=== PATIENT | female | born 1935 | race Caucasian/White ===

== ENCOUNTER 2019-08-15 18:55 | Emergency (ER) | payer MEDICARE ==
[2019-08-15 19:41] LABS: CREATININE 1.2 mg/dL (0.5-1.5); POTASSIUM 4.5 mmol/L (3.5-5.1)
[2019-08-15 19:45] LABS: ALBUMIN 3.6 g/dL (3.5-5.0); BILIRUBIN,TOTAL 0.4 mg/dL (0.2-1.0); TOTAL PROTEIN, SERUM 7.3 g/dL (6.0-8.3)
[2019-08-15] MEDS ORDERED: SODIUM CHLORIDE 0.9% 250 ML IV ONE (20:47)
[2019-08-15 21:02] LABS: BASOPHILS % (AUTO) 1.7 % (0.0-5.0); EOSINOPHILS % (AUTO) 1.3 % (0.0-8.0); HEMATOCRIT 24.8 % (36-48); LYMPHOCYTES % (AUTO) 32.6 % (21.0-51.0); MEAN CORPUSCULAR HEMOGLOBIN 33.6 pg (27.0-33.0); MEAN CORPUSCULAR HGB CONC 34.2 g/dL (32.0-36.0); MEAN CORPUSCULAR VOLUME 98.2 fL (79-99); MONOCYTES % (AUTO) 9.2 % (3.0-13.0); NEUTROPHILS % (AUTO) 55.2 % (40.0-77.0); NUCLEATED RED BLOOD CELLS 0.1 % (0.0-0.19); PLATELET COUNT (AUTO) 286 K/uL (130-400); RED BLOOD CELL COUNT(AUTO) 2.53 MIL/uL (4.00-5.50); RED CELL DISTRIBUTION WIDTH 13.9 % (11.0-15.5); WHITE BLOOD COUNT (AUTO) 6.3 K/uL (4.8-10.8)
[2019-08-15 21:24] LABS: APPEARANCE,URINE Cloudy (CLEAR); BILIRUBIN,URINE Negative (NEGATIVE); COLOR,URINE Yellow (YELLOW); GLUCOSE, URINE (UA) Negative (NEGATIVE); KETONES,URINE Negative (NEGATIVE); LEUKOCYTE ESTERASE ,URINE Large (NEGATIVE); NITRATE,URINE Negative (NEGATIVE); OCCULT BLOOD,URINE Negative (NEGATIVE); PH,URINE 5.5 (5.0-8.0); PROTEIN,URINE Trace mg/dL (NEGATIVE); UROBILINOGEN,URINE 0.2 mg/dL (0.2-1.0)
[2019-08-15] MEDS ORDERED: CEFTRIAXONE SODIUM 1 GM ONE (21:41)
[2019-08-15 21:47] LABS: INR 0.98 (0.85-1.15); PARTIAL THROMBOPLASTIN TIME 23.6 SEC (26.3-35.5); PROTHROMBIN TIME 10.3 SEC (9.6-11.6)
[2019-08-15 21:59] LABS: BACTERIA,URINE Rare /HPF (None Seen); SQUAMOUS EPITHELIAL CELL,UR Rare /HPF (0-2); TRANSITIONAL EPI CELLS,URINE Rare /HPF (None Seen)
[2019-08-15 22:22] LABS: TROPONIN I 0.04 ng/mL (0.00-0.06)
== END 2019-08-15 23:19 | disposition home or self-care (01) ==
LOC: EDH 18:55
DX: N39.0 Urinary tract infection, site not specified (principal); I10 Essential (primary) hypertension; D64.9 Anemia, unspecified; R06.00 Dyspnea, unspecified; M19.90 Unspecified osteoarthritis, unspecified site; E78.00 Pure hypercholesterolemia, unspecified; Z90.710 Acquired absence of both cervix and uterus; Z88.1 Allergy status to other antibiotic agents
CPT/HCPCS: 36415; 71045; 80053; 81001; 82550; 83605; 83690; 83874; 84145; 84484 ×2; 85025; 85610; 85730; 87040 ×2; 87077; 87186; 93005; 96374; 99285; J0696; J7030

== ENCOUNTER 2019-08-17 18:20 | Inpatient (IN) | payer MEDICARE ==
[~2019-08-17] VITALS: Ht 162.6 cm; Wt 45.0 kg
[2019-08-17 19:10] LABS: BASOPHILS % (AUTO) 1.2 % (0.0-5.0); EOSINOPHILS % (AUTO) 0.2 % (0.0-8.0); HEMATOCRIT 23.3 % (36-48); LYMPHOCYTES % (AUTO) 27.4 % (21.0-51.0); MEAN CORPUSCULAR HEMOGLOBIN 33.5 pg (27.0-33.0); MEAN CORPUSCULAR VOLUME 98.3 fL (79-99); MONOCYTES % (AUTO) 8.9 % (3.0-13.0); NEUTROPHILS % (AUTO) 62.3 % (40.0-77.0); PLATELET COUNT (AUTO) 313 K/uL (130-400); RED BLOOD CELL COUNT(AUTO) 2.37 MIL/uL (4.00-5.50); RED CELL DISTRIBUTION WIDTH 13.3 % (11.0-15.5); WHITE BLOOD COUNT (AUTO) 5.4 K/uL (4.8-10.8)
[2019-08-17 19:27] LABS: CREATININE 1.3 mg/dL (0.5-1.5); POTASSIUM 4.1 mmol/L (3.5-5.1)
[2019-08-17 19:31] LABS: PARTIAL THROMBOPLASTIN TIME 32.6 SEC (26.3-35.5); PROTHROMBIN TIME 10.5 SEC (9.6-11.6)
[2019-08-17 19:32] LABS: ALBUMIN 3.1 g/dL (3.5-5.0); BILIRUBIN,TOTAL 0.3 mg/dL (0.2-1.0); TOTAL PROTEIN, SERUM 6.4 g/dL (6.0-8.3)
[2019-08-17] MEDS ORDERED: FUROSEMIDE 10 MG/ML 4ML VIAL ONE (21:41)
[2019-08-17] MEDS: FUROSEMIDE 10 MG/ML 2ML VIAL IV SCH (22:15)
[2019-08-17] MEDS ORDERED: CEFTRIAXONE SODIUM 1 GM ONE (22:41)
[2019-08-18] VITALS (7 sets, daily range): BP systolic 151–162; BP diastolic 55–87
[2019-08-18] MEDS ORDERED: ZOLPIDEM TARTRATE 5 MG TAB PO ONE (01:30)
[2019-08-18] MEDS ORDERED: ZOLPIDEM TARTRATE 5 MG TAB ONE ×2 (01:40→22:52)
[2019-08-18] MEDS ORDERED: THIA100T91 PO (01:50)
[2019-08-18] MEDS ORDERED: LORA10TA7 PO (01:50)
[2019-08-18] MEDS ORDERED: ALLO100T PO (01:50)
[2019-08-18] MEDS ORDERED: PANT40TA PO (01:50)
[2019-08-18] MEDS ORDERED: MVIT PO (01:50)
[2019-08-18] MEDS ORDERED: LOSA100T58 PO (01:50)
[2019-08-18] MEDS ORDERED: LABE200T5 PO (01:50)
[2019-08-18] MEDS ORDERED: ZOLP5TAB2 PO (01:50)
[2019-08-18] MEDS ORDERED: HYDR200T82 PO (01:50)
[2019-08-18 05:12] LABS: BASOPHILS % (AUTO) 1.3 % (0.0-5.0); HEMATOCRIT 23.9 % (36-48); LYMPHOCYTES % (AUTO) 33.8 % (21.0-51.0); MEAN CORPUSCULAR HEMOGLOBIN 33.9 pg (27.0-33.0); MEAN CORPUSCULAR HGB CONC 34.6 g/dL (32.0-36.0); MONOCYTES % (AUTO) 11.3 % (3.0-13.0); NEUTROPHILS % (AUTO) 53.6 % (40.0-77.0); NUCLEATED RED BLOOD CELLS 0.1 % (0.0-0.19); PLATELET COUNT (AUTO) 310 K/uL (130-400); RED BLOOD CELL COUNT(AUTO) 2.44 MIL/uL (4.00-5.50); RED CELL DISTRIBUTION WIDTH 13.5 % (11.0-15.5); WHITE BLOOD COUNT (AUTO) 5.2 K/uL (4.8-10.8)
[2019-08-18 05:35] LABS: ALBUMIN 3.1 g/dL (3.5-5.0); BILIRUBIN,TOTAL 0.4 mg/dL (0.2-1.0); CREATININE 1.5 mg/dL (0.5-1.5); POTASSIUM 3.6 mmol/L (3.5-5.1); TOTAL PROTEIN, SERUM 6.5 g/dL (6.0-8.3)
[2019-08-18] MEDS: FUROSEMIDE 10 MG/ML 2ML VIAL IV SCH ×2 (08:46→21:01)
[2019-08-18] MEDS: FAMOTIDINE/PF 20 MG/2 ML VIAL IV SCH (08:46)
[2019-08-18] MEDS ORDERED: ONDANSETRON HCL 4 MG/2 ML VIAL IVP PRN (10:00)
[2019-08-18] MEDS ORDERED: HYDRALAZINE HCL 20 MG/ML VIAL IV PRN (10:00)
[2019-08-18] MEDS: CEFTRIAXONE SODIUM 1 GM IVP SCH (12:15)
[2019-08-18] MEDS: HEPARIN SODIUM 5000UNIT/ML 1ML VIAL SQ SCH ×2 (12:24→21:03)
[2019-08-18 13:07] LABS: APPEARANCE,URINE CLEAR (CLEAR); BILIRUBIN,URINE NEGATIVE (NEGATIVE); COLOR,URINE YELLOW (YELLOW); GLUCOSE, URINE (UA) NEGATIVE (NEGATIVE); KETONES,URINE NEGATIVE (NEGATIVE); LEUKOCYTE ESTERASE ,URINE NEGATIVE (NEGATIVE); NITRATE,URINE NEGATIVE (NEGATIVE); OCCULT BLOOD,URINE NEGATIVE (NEGATIVE); PH,URINE 5.5 (5.0-8.0); PROTEIN,URINE NEGATIVE (NEGATIVE); UROBILINOGEN,URINE 0.2 mg/dL (0.2-1.0)
[2019-08-18 13:13] LABS: AMORPHOUS SEDIMENT,UR Few /LPF (None Seen); BACTERIA,URINE Few /HPF (None Seen); SQUAMOUS EPITHELIAL CELL,UR Few /HPF (0-2)
--- NOTE | 2019-08-18 15:14 | NUR ---
DCP CM met with pt discussed dc plans. Pt is semi-independent prior to admission, lives at home w/daughter. Pt has a walker, cane, shower chair. Denies any other equipments/services. Feels safe to go back home, daughter able to assist with transportation and needs as necessary. DC plan to home once stable. CM to cont to follow up. Addendum: 08/18/19 at 1515 by KYLEE ADAMES LVN CM Amended: Links added.
--- NOTE | 2019-08-18 15:43 | NUR ---
RD NOTIFICATION DX: CHF EXACERBATION. HX: DEMENTIA, ANEMIA, ARTHRITIS, HTN. SKIN: STG 2 ULCER ON LEFT BUTTOCKS REGION, NO EDEMA NOTED. DIET: NPO. LBM: 08/17. PO INTAKE 75% AND HAS GREAT APPETITE PER PT. PT STATED SHE HAS DIFFICULTY CHEWING FOOD AT TIMES AND HAS GERD. BMI IS 17; CLASSIFIED UNDERWEIGHT. PT CLAIMS SHE DOES NOT LIKE ENSURE, SHE WOULD RATHER EAT FOOD. RD RECOMMENDS ADVANCE DIET TOLERATED TO GI SOFT/BLAND, MECHANICAL SOFT/CHOPPED, 2GM Na. RD WILL CONTINUE TO MONITOR AND FOLLOW UP NEEDED. YISEL MARTINEZ MS, RDN Addendum: 08/18/19 at [address] RD Amended: Links added.
[2019-08-18] MEDS: HYDROXYCHLOROQUINE SULFATE 200 MG TAB PO SCH (21:00)
[2019-08-18] MEDS: PANTOPRAZOLE SODIUM 40 MG TABLET.DR PO SCH (21:01)
[2019-08-18] MEDS: LABETALOL HCL 200 MG TABLET PO SCH (21:01)
--- NOTE | 2019-08-18 22:52 | NUR ---
Ambien 5mg po at HS resumed and administered as ordered.
[2019-08-19 04:30] VITALS: BP 138/68
[2019-08-19 05:42] LABS: HEMATOCRIT 24.5 % (36-48); MEAN CORPUSCULAR HEMOGLOBIN 34.2 pg (27.0-33.0); MEAN CORPUSCULAR HGB CONC 34.7 g/dL (32.0-36.0); MEAN CORPUSCULAR VOLUME 98.6 fL (79-99); PLATELET COUNT (AUTO) 315 K/uL (130-400); RED BLOOD CELL COUNT(AUTO) 2.49 MIL/uL (4.00-5.50); RED CELL DISTRIBUTION WIDTH 13.6 % (11.0-15.5); WHITE BLOOD COUNT (AUTO) 6.4 K/uL (4.8-10.8)
[2019-08-19 05:50] LABS: CREATININE 1.8 mg/dL (0.5-1.5)
[2019-08-19 08:49] VITALS: BP 151/75
[2019-08-19] MEDS ORDERED: LORATADINE 10 MG TABLET PO SCH (09:00)
[2019-08-19] MEDS: FAMOTIDINE/PF 20 MG/2 ML VIAL IV SCH (09:49)
[2019-08-19] MEDS: CEFTRIAXONE SODIUM 1 GM IVP SCH (09:49)
[2019-08-19] MEDS: LOSARTAN 100 MG TABLET PO SCH (09:53)
[2019-08-19] MEDS: PANTOPRAZOLE SODIUM 40 MG TABLET.DR PO SCH ×2 (09:53→20:33)
[2019-08-19] MEDS: MULTIVITAMIN TABLET PO SCH (09:53)
[2019-08-19] MEDS: LABETALOL HCL 200 MG TABLET PO SCH ×2 (09:54→20:33)
[2019-08-19] MEDS: ALLOPURINOL 100 MG TABLET PO SCH (09:54)
[2019-08-19] MEDS: HYDROXYCHLOROQUINE SULFATE 200 MG TAB PO SCH ×2 (09:54→20:33)
[2019-08-19] MEDS: THIAMINE HCL 100 MG TABLET PO SCH (09:54)
[2019-08-19] MEDS: HEPARIN SODIUM 5000UNIT/ML 1ML VIAL SQ SCH ×2 (10:07→20:30)
[2019-08-19] MEDS: AZITHROMYCIN 500MG+NS 250ML 250 ML IV SCH (11:21)
[2019-08-19 11:52] VITALS: BP 145/72
--- NOTE | 2019-08-19 13:02 | NUR ---
CM Note: [facility] pending acceptance CM met with pt discussed MD recommendations for short term rehab, pt agreeable for [facility], RICHARD signed, pt verbalized to inform daughter Raciel. Called [facility] and Essence given courtesy call as per pt request regarding POC, both daughter in agreement, obtained telephone consent RICHARD for [facility]. Faxed order, clinicals, PT, and [facility], confirmation received. Spoke to [facility], will come eval pt, aware pt pending to completed 3rd midnight tonight, ok to transfer tomorrow once accepted. EMS arranged and faxed for tomorrow, primary nurse to call [facility] once pt ready to DC. Primary nurse Donald aware. CM to cont to follow up.
--- NOTE | 2019-08-19 14:58 | NUR ---
CM Note: [facility] acceptance CM spoke to [facility], came to eval pt. Pt has acceptance. Aware pt needed to completed 3rd midnight tonight. Ok to transfer tomorrow via EMS. EMS arranged and faxed for tomorrow, primary nurse aware to call [facility] once pt ready to DC. Primary nurse aware. CM to cont to follow up.
--- NOTE | 2019-08-19 15:15 | NUR ---
Patient in process of discussions with [facility] regarding transfer. Spoke with primary nurse, redness and dryness to skin of buttocks. Skin barrier and allevyn life pads being used to protect skin from breakdown. No open areas present as per primary nurse. No further recommendations provided at this time. Continue to apply skin barrier cream, offload and use allevyn pads for offloading areas. Reconsult should breakdown occur.
[2019-08-19 16:22] VITALS: BP 144/77
--- NOTE | 2019-08-19 19:36 | NUR ---
CONTACT PHYSICIAN CONTACTED APRIL CARTER REGARDING PATIENT NOT ON DR. AMBROCIO'S CENSUS AND HAS NOT BEEN SEEN. ADVISED PATIENT REQUESTING NG TUBE BE REMOVED. APRIL ADVISED HE IS UNABLE TO PLACE ANY ORDER UNTIL HE SEES THE PATIENT NEXT DATE. SPOKE WITH DR. AMBROCIO REGARDING PATIENT. ADVISED PATIENT HAS HAS NO OUTPUT FROM NG TUBE. DR. AMBROCIO ADVISED TO DC THE NG TUBE AND PLACE THE PATIENT ON CLEAR LIQUID DIET.
[2019-08-19 20:00] VITALS: BP 142/60
[2019-08-19] MEDS: ZOLPIDEM TARTRATE 5 MG TAB PO SCH (20:33)
[2019-08-19] MEDS: ACETAMINOPHEN EXTRA STRENGTH 500 MG TABLET PO PRN (20:33)
[2019-08-19 23:59] VITALS: BP 106/50
[2019-08-20 04:00] VITALS: BP 163/88
[2019-08-20 05:25] LABS: HEMATOCRIT 23.6 % (36-48); MEAN CORPUSCULAR HEMOGLOBIN 33.9 pg (27.0-33.0); MEAN CORPUSCULAR HGB CONC 34.1 g/dL (32.0-36.0); MEAN CORPUSCULAR VOLUME 99.7 fL (79-99); PLATELET COUNT (AUTO) 285 K/uL (130-400); RED BLOOD CELL COUNT(AUTO) 2.37 MIL/uL (4.00-5.50); RED CELL DISTRIBUTION WIDTH 13.5 % (11.0-15.5); WHITE BLOOD COUNT (AUTO) 5.6 K/uL (4.8-10.8)
[2019-08-20 05:40] LABS: CREATININE 2.1 mg/dL (0.5-1.5)
[2019-08-20 08:00] VITALS: BP 161/78
[2019-08-20] MEDS: THIAMINE HCL 100 MG TABLET PO SCH (08:45)
[2019-08-20] MEDS: FAMOTIDINE/PF 20 MG/2 ML VIAL IV SCH (08:45)
[2019-08-20] MEDS: MULTIVITAMIN TABLET PO SCH (08:45)
[2019-08-20] MEDS: LOSARTAN 100 MG TABLET PO SCH (08:46)
[2019-08-20] MEDS: PANTOPRAZOLE SODIUM 40 MG TABLET.DR PO SCH ×2 (08:46→20:40)
[2019-08-20] MEDS: HYDROXYCHLOROQUINE SULFATE 200 MG TAB PO SCH ×2 (08:46→20:40)
[2019-08-20] MEDS: ALLOPURINOL 100 MG TABLET PO SCH (08:46)
[2019-08-20] MEDS: LABETALOL HCL 200 MG TABLET PO SCH ×2 (08:46→20:40)
[2019-08-20] MEDS: AZITHROMYCIN 500MG+NS 250ML 250 ML IV SCH (10:32)
[2019-08-20] MEDS: CEFTRIAXONE SODIUM 1 GM IVP SCH (10:33)
[2019-08-20] MEDS: HEPARIN SODIUM 5000UNIT/ML 1ML VIAL SQ SCH (10:43)
[2019-08-20 12:00] VITALS: BP 133/66
[2019-08-20] MEDS: ACETAMINOPHEN EXTRA STRENGTH 500 MG TABLET PO PRN (14:30)
[2019-08-20 16:00] VITALS: BP 171/72
[2019-08-20] MEDS: ZOLPIDEM TARTRATE 5 MG TAB PO SCH (20:40)
[2019-08-21] MEDS ORDERED: AMLODIPINE BESYLATE 5 MG TAB PO SCH (09:00)
== END 2019-08-20 21:10 | DRG 194 ==
LOC: EDH 18:20 → OBSVTOIN 22:11 → EDHIP 22:11 → 3CH 08-18 00:33
PROVIDERS: ADMIT Internal Medicine; ATTEND Internal Medicine
DX: J18.9 Pneumonia, unspecified organism (principal); J44.0 Chronic obstructive pulmonary disease with (acute) lower respiratory infection; N17.9 Acute kidney failure, unspecified; E87.1 Hypo-osmolality and hyponatremia; N39.0 Urinary tract infection, site not specified; I12.9 Hypertensive chronic kidney disease with stage 1 through stage 4 chronic kidney disease, or unspecified chronic kidney disease; E87.70 Fluid overload, unspecified; D63.8 Anemia in other chronic diseases classified elsewhere; R41.81 Age-related cognitive decline; M81.0 Age-related osteoporosis without current pathological fracture; N18.9 Chronic kidney disease, unspecified; M19.90 Unspecified osteoarthritis, unspecified site; E78.00 Pure hypercholesterolemia, unspecified; M06.9 Rheumatoid arthritis, unspecified; E78.5 Hyperlipidemia, unspecified; Z87.440 Personal history of urinary (tract) infections; Z91.81 History of falling; Z90.710 Acquired absence of both cervix and uterus; Z90.49 Acquired absence of other specified parts of digestive tract; Z88.1 Allergy status to other antibiotic agents
CPT/HCPCS: 36415; 71045; 76770; 78582; 80048; 80053; 81001; 82550; 82948; 83605; 83690; 83874; 83880; 84145; 84484; 85025; 85027; 85610; 85730; 87040; 87077; 87186; 93005; 93306; 96374; 97039; A9540; A9558; G0378; J0360; J0456; J0696; J1644; J1940; J3490; J7030